=== PATIENT | male | born 1960 | race African-American/Black ===

== ENCOUNTER 2018-02-10 17:31 | Emergency (ER) | payer SELFPAY ==
[~2018-02-10] VITALS: Ht 177.8 cm; Wt 70.0 kg
[2018-02-10] MEDS ORDERED: FLUORESCEIN SODIUM 1MG/STRIP OP ONE (19:30)
[2018-02-10] MEDS ORDERED: TETRACAINE 0.5% OPHTH DROPS 4ML OP ONE (19:30)
[2018-02-10] MEDS ORDERED: IBUPROFEN 600MG TABLET PO ONE (21:30)
[2018-02-10 22:58] VITALS: BP 122/75
== END 2018-02-10 22:09 | disposition home or self-care (01) ==
LOC: ER 17:31
DX: S05.92XA Unspecified injury of left eye and orbit, initial encounter (principal); W22.8XXA Striking against or struck by other objects, initial encounter; Y93.89 Activity, other specified; Y92.512 Supermarket, store or market as the place of occurrence of the external cause; Y99.8 Other external cause status
CPT/HCPCS: 70486; 99284